=== PATIENT | male | born 1955 | race Caucasian/White ===

== ENCOUNTER 2018-05-18 08:09 | Emergency (ER) | payer OTHER ==
[~2018-05-18] VITALS: Ht 175.3 cm; Wt 102.1 kg
[2018-05-18 08:30] LABS: ABSOLUTE NEUTROPHILS 4.6 thou/uL (1.4-8.2); BASOPHILS 0.5 % (0.0-2.0); EOSINOPHILS 2.5 % (0.0-3.0); HEMATOCRIT 47.3 % (42.0-52.0); HEMOGLOBIN 16.4 gm/dL (14.0-18.0); LYMPHOCYTES 30.6 % (24.0-44.0); MCH 30.6 pg (26.0-34.0); MCHC 34.7 g/dL (28.0-37.0); MONOCYTES 6.9 % (1.0-8.0); PLATELET COUNT 235 thou/uL (150-400); POLYS 59.5 % (36.0-66.0); RBC 5.38 mil/uL (4.50-6.00); WBC 7.7 thou/uL (4.0-11.0)
[2018-05-18] MEDS ORDERED: NEURO PO (08:33)
[2018-05-18] MEDS ORDERED: COQ-10100 MG PO (08:34)
[2018-05-18] MEDS ORDERED: [UNRECOGNIZED DRUG - OTHER] TOP (08:35)
[2018-05-18] MEDS ORDERED: PROBIOTIC1 EAC1 PO (08:35)
[2018-05-18] MEDS ORDERED: OMEGA PO (08:36)
[2018-05-18 08:41] LABS: ANION GAP 9 mmol/L (7-16); BUN 25 mg/dL (7-18); CALCIUM 9.4 mg/dL (8.5-10.1); CHLORIDE 104 mmol/L (98-107); CO2 27 mmol/L (21-32); CREATININE 1.8 mg/dL (0.7-1.3); GLUCOSE 120 mg/dL (74-106); POTASSIUM 4.4 mmol/L (3.5-5.1); SODIUM 140 mmol/L (136-145)
[2018-05-18 08:47] LABS: ALBUMIN 4.4 g/dL (3.4-5.0); DIRECT BILIRUBIN < 0.1 mg/dL (<0.1-0.3); LIPASE 187 U/L (73-393); SGOT 20 U/L (15-37); SGPT 29 U/L (30-65); TOTAL BILIRUBIN 0.4 mg/dL (<0.1-1.0); TOTAL PROTEIN 8.1 g/dL (6.4-8.2)
[2018-05-18 09:02] LABS: URINE BILIRUBIN NEGATIVE (Negative); URINE BLOOD NEGATIVE (Negative); URINE CLARITY CLEAR; URINE COLOR YELLOW; URINE GLUCOSE-RANDOM* NEGATIVE (Negative); URINE KETONES NEGATIVE (Negative); URINE LEUKOCYTES NEGATIVE (Negative); URINE NITRITE NEGATIVE (Negative); URINE PROTEIN (DIPSTICK) NEGATIVE (Negative); URINE SPECIFIC GRAVITY 1.015 (1.005-1.035); URINE UROBILINOGEN 0.2 E.U./dl (0.2-1.0)
[2018-05-18] MEDS ORDERED: FLOMAX0.4 MG PO ×2 (09:16→09:38)
[2018-05-18] MEDS ORDERED: NORCO 5-325 TA1 EACH PO (09:38)
[2018-05-18 09:44] VITALS: BP 161/86
== END 2018-05-18 09:45 | disposition home or self-care (01) ==
LOC: ER 08:09
PROVIDERS: Emergency Medicine
DX: N20.1 Calculus of ureter (principal); R11.0 Nausea; Z88.0 Allergy status to penicillin; Z88.8 Allergy status to other drugs, medicaments and biological substances

== ENCOUNTER 2019-05-12 04:46 | Emergency (ER) | payer OTHER ==
[~2019-05-12] VITALS: Ht 175.3 cm; Wt 108.9 kg
[~2019-05-12 04:46] MED LIST: COQ-10100 MG PO; FLOMAX0.4 MG PO; NEURO PO; NORCO 5-325 TA1 EACH PO; OMEGA PO; PROBIOTIC1 EAC1 PO; [UNRECOGNIZED DRUG - OTHER] TOP
[2019-05-12] MEDS ORDERED: AMLODIPINE BESY10 MG PO (04:56)
[2019-05-12 05:13] LABS: BASOPHILS 0.6 % (0.0-2.0); EOSINOPHILS 3.5 % (0.0-3.0); HEMATOCRIT 43.7 % (42.0-52.0); HEMOGLOBIN 15.1 gm/dL (14.0-18.0); LYMPHOCYTES 36.3 % (24.0-44.0); MCH 30.4 pg (26.0-34.0); MCHC 34.6 g/dL (28.0-37.0); MCV 87.6 fL (80.0-100.0); MONOCYTES 7.3 % (1.0-8.0); PLATELET COUNT 233 thou/uL (150-400); POLYS 52.3 % (36.0-66.0); RBC 4.98 mil/uL (4.50-6.00); RDW 13.5 % (10.5-14.5); WBC 7.6 thou/uL (4.0-11.0)
[2019-05-12 05:13] LABS: URINE BILIRUBIN NEGATIVE (Negative); URINE BLOOD TRACE (Negative); URINE CLARITY CLEAR; URINE COLOR YELLOW; URINE GLUCOSE-RANDOM* NEGATIVE (Negative); URINE KETONES NEGATIVE (Negative); URINE LEUKOCYTES-REFLEX NEGATIVE (Negative); URINE NITRITE-REFLEX NEGATIVE (Negative); URINE PROTEIN (DIPSTICK) NEGATIVE (Negative); URINE UROBILINOGEN 0.2 E.U./dl (0.2-1.0)
[2019-05-12 05:17] LABS: ANION GAP 11 mmol/L (7-16); BUN 23 mg/dL (7-18); CHLORIDE 104 mmol/L (98-107); CO2 25 mmol/L (21-32); CREATININE 1.5 mg/dL (0.7-1.3); GLUCOSE 125 mg/dL (74-106); POTASSIUM 4.2 mmol/L (3.5-5.1); SODIUM 140 mmol/L (136-145)
[2019-05-12 05:27] LABS: LIPASE 177 U/L (73-393); SGOT 18 U/L (15-37); SGPT 29 U/L (30-65); TOTAL BILIRUBIN 0.4 mg/dL (<0.1-1.0); TOTAL PROTEIN 7.8 g/dL (6.4-8.2); TROPONIN-I <0.06 ng/mL (<0.06)
[2019-05-12] MEDS ORDERED: ONDANSETRON ODT8 MG PO (05:33)
[2019-05-12] MEDS ORDERED: TORADOL 10 MG T10 MG PO (05:33)
[2019-05-12 06:11] VITALS: BP 147/89
--- NOTE | 2019-05-12 08:06 | EKG ---
[address] [address] [place] [address] ELECTROCARDIOGRAM REPORT Name: CAMELIA MADDEN Room #: JORDON Kam#: [id number] ������������������ Admission: 05/12/19 ������������������ Attend Phys: Discharge: 05/12/19 ������������������ Date of : 55 Report #: [id number] ����������������������������������������������������������������� [id number] THIS REPORT FOR: //name// [facility] ED Test Date: 2019-05-12 Test Time: 05:35:36 Pat Name: CAMELIA MADDEN Department: Room: Gender: Clinical Quality Manager: lizbeth : 1955 Requested By: Wander So Order Number: [id number] MD: Damien Valentin Measurements Intervals [place] Rate: 55 P: 12 ND: 172 QRS: 33 QRSD: 97 T: 47 QT: 452 QTc: 433 Interpretive Statements Sinus bradycardia Otherwise no significant abnormality No previous ECG available for comparison Electronically Signed On 05-12-2019 8:05:49 CDT by Damien Valentin [email or web address] ��������������������������������������������� <ELECTRONICALLY SIGNED> ���������������������������������������� By: Damien Valentin MD, [facility] ��������������������������������������������� 05/12/19 0805 0535 [id number] Damien Valentin MD, FACC /EPI
== END 2019-05-12 06:12 | disposition home or self-care (01) ==
LOC: ER 04:46
PROVIDERS: Emergency Medicine
DX: N20.0 Calculus of kidney (principal); I12.9 Hypertensive chronic kidney disease with stage 1 through stage 4 chronic kidney disease, or unspecified chronic kidney disease; N18.9 Chronic kidney disease, unspecified; N50.812 Left testicular pain; Z88.0 Allergy status to penicillin; Z88.8 Allergy status to other drugs, medicaments and biological substances